=== PATIENT | male | born 1975 | race Caucasian/White ===

== ENCOUNTER 2023-06-07 14:40 | Emergency (ER) | payer SELFPAY ==
[~2023-06-07] VITALS: Ht 165.1 cm; Wt 76.2 kg
[2023-06-07 14:50] VITALS: BP 140/82
[2023-06-07] MEDS ORDERED: LIPITOR40 MG PO (15:05)
[2023-06-07] MEDS ORDERED: ALVESCO6.1 GM INH (15:05)
[2023-06-07] MEDS ORDERED: PROVENTIL HFA6.7 GM INH (15:05)
[2023-06-07] MEDS ORDERED: SERTRALINE HYDR50 MG PO (15:05)
[2023-06-07] MEDS ORDERED: DEPAKOTE500 M2 PO (15:05)
== END 2023-06-07 15:23 | disposition home or self-care (01) ==
LOC: ED 14:40
DX: I63.9 Cerebral infarction, unspecified (principal); Z76.0 Encounter for issue of repeat prescription; F32.A Depression, unspecified; J44.9 Chronic obstructive pulmonary disease, unspecified; E78.5 Hyperlipidemia, unspecified; G43.909 Migraine, unspecified, not intractable, without status migrainosus; Z88.1 Allergy status to other antibiotic agents; Z98.890 Other specified postprocedural states

== ENCOUNTER 2023-08-01 19:43 | Emergency (ER) | payer SELFPAY ==
[~2023-08-01] VITALS: Ht 167.6 cm; Wt 74.4 kg
[~2023-08-01 19:43] MED LIST: ALVESCO6.1 GM INH; DEPAKOTE500 M2 PO; LIPITOR40 MG PO; PROVENTIL HFA6.7 GM INH; SERTRALINE HYDR50 MG PO
[2023-08-01] MEDS ORDERED: ASPIRIN CHILDRE81 MG PO (20:09)
[2023-08-01] MEDS ORDERED: ZOLOFT50 MG PO (20:09)
[2023-08-01] MEDS ORDERED: AMOX-CLAV 875-1 EACH PO (22:15)
[2023-08-01] MEDS ORDERED: Amoxicillin/Clavulanate Pota 875 MG TAB PO ONE (22:15)
== END 2023-08-01 22:22 | disposition home or self-care (01) ==
LOC: ED 19:43
DX: J32.9 Chronic sinusitis, unspecified (principal); H92.03 Otalgia, bilateral; Z88.1 Allergy status to other antibiotic agents; Z79.899 Other long term (current) drug therapy; Z79.82 Long term (current) use of aspirin

== ENCOUNTER 2023-10-03 21:44 | Emergency (ER) | payer SELFPAY ==
[~2023-10-03] VITALS: Ht 167.6 cm; Wt 76.2 kg
[~2023-10-03 21:44] MED LIST changes: +AMOX-CLAV 875-1 EACH PO; +ASPIRIN CHILDRE81 MG PO; +ZOLOFT50 MG PO
[2023-10-03 21:53] VITALS: BP 111/76
[2023-10-03] MEDS ORDERED: ACETAMINOPHEN 325 MG TAB PO ONE (22:10)
[2023-10-03] MEDS ORDERED: SODIUM CHLORIDE 0.9% 1,000 ML IV ONE (22:10)
[2023-10-03 22:30] LABS: BASO # 0.1 10*3/uL (0.0-0.1); BASO % 0.6 % (0.0-1.0); EOS # 0.2 10*3/uL (0.0-0.4); EOS % 1.8 % (1.0-4.0); HEMATOCRIT 45.2 % (42.0-52.0); LYMPH # 2.5 10*3/uL (1.3-4.4); LYMPH % 27.2 % (27.0-41.0); MEAN CELL VOLUME 90.4 fl (80.0-94.0); MEAN CORPUSCULAR HGB CONC 34.3 g/dl (33.0-37.0); MEAN PLATELET VOLUME 9.7 fl (9.6-12.3); MONO # 0.8 10*3/uL (0.1-1.0); MONO % 8.7 % (3.0-9.0); NEUT # 5.7 10*3/uL (2.3-7.9); NEUT % 61.2 % (47.0-73.0); PLATELET COUNT AUTOMATED 252 10*3/uL (130-400); RED CELL DISTRI WIDTH 13.3 % (0-14.5); WHITE BLOOD COUNT 9.3 10*3/uL (4.8-10.8)
[2023-10-03 22:39] LABS: ACT PARTIAL THROMBO TIME 27.9 SECONDS (20.0-32.1)
[2023-10-03 22:51] LABS: ALKALINE PHOSPHATASE 85 U/L (46-116); BUN 11 mg/dl (9-23); CHLORIDE 109 mmol/L (98-107); SGPT/ALT 26 U/L (5-49); TOTAL PROTEIN 6.6 gm/dL (6.0-8.0)
[2023-10-04] MEDS ORDERED: Lidocaine Hydrochloride 15 ML UDC PO STA (00:33)
[2023-10-04] MEDS ORDERED: Dicyclomine Hydrochloride 20 MG/10 ML OSYR PO STA (00:33)
[2023-10-04] MEDS ORDERED: MG-AL HYDROXIDE/SIMETICONE 30 ML UDC PO STA (00:33)
[2023-10-04] MEDS ORDERED: PEPCID AC10 M2 PO (00:35)
[2023-10-04] MEDS ORDERED: Ondansetron Hydrochloride 4 MG/2 ML VIAL IV ONE (00:35)
== END 2023-10-04 00:41 | disposition home or self-care (01) ==
LOC: ED 21:44
PROVIDERS: Internal Medicine
DX: K21.9 Gastro-esophageal reflux disease without esophagitis (principal); R42 Dizziness and giddiness; I25.2 Old myocardial infarction; J45.909 Unspecified asthma, uncomplicated; G43.909 Migraine, unspecified, not intractable, without status migrainosus; Z88.1 Allergy status to other antibiotic agents; Z98.890 Other specified postprocedural states; Z87.891 Personal history of nicotine dependence

== ENCOUNTER 2023-12-27 16:46 | Emergency (ER) | payer MEDICAID ==
[~2023-12-27] VITALS: Ht 167.6 cm; Wt 78.0 kg
[~2023-12-27 16:46] MED LIST changes: +PEPCID AC10 M2 PO
[2023-12-27 17:01] VITALS: BP 121/77
[2023-12-27] MEDS ORDERED: SEROQUEL50 MG PO (17:07)
[2023-12-27] MEDS ORDERED: MAGNESIUM100 M1 PO (17:08)
[2023-12-27 17:49] LABS: BASO # 0.1 10*3/uL (0.0-0.1); BASO % 0.9 % (0.0-1.0); EOS # 0.3 10*3/uL (0.0-0.4); EOS % 4.4 % (1.0-4.0); HEMATOCRIT 48.2 % (42.0-52.0); LYMPH # 3.2 10*3/uL (1.3-4.4); LYMPH % 41.2 % (27.0-41.0); MEAN CELL VOLUME 95.4 fl (80.0-94.0); MEAN CORPUSCULAR HGB 30.9 pg (27.0-31.0); MEAN CORPUSCULAR HGB CONC 32.4 g/dl (33.0-37.0); MEAN PLATELET VOLUME 9.8 fl (9.6-12.3); MONO # 0.6 10*3/uL (0.1-1.0); MONO % 7.6 % (3.0-9.0); NEUT # 3.6 10*3/uL (2.3-7.9); NEUT % 45.5 % (47.0-73.0); PLATELET COUNT AUTOMATED 247 10*3/uL (130-400); RED BLOOD COUNT 5.05 10*6/uL (4.50-5.90); RED CELL DISTRI WIDTH 13.1 % (0-14.5); WHITE BLOOD COUNT 7.8 10*3/uL (4.8-10.8)
[2023-12-27 18:00] LABS: BILIRUBIN Negative (Negative); BLOOD Negative (Negative); CLARITY Clear (Clear); COLOR Yellow (Yellow); GLUCOSE Negative (Negative); KETONE Negative (Negative); LEUKO ESTERASE Negative (Negative); NITRITE Negative (Negative); PH 7.5 (4.5-8.0)
[2023-12-27 18:03] LABS: URINE AMPHETAMINES Negative (1000ng/ml); URINE BARBITURATES Negative (200ng/ml); URINE BENZODIAZEPINES Negative (200ng/ml); URINE CANNABINOIDS (THC) Negative (50ng/ml); URINE COCAINE Positive (300ng/ml); URINE METHADONE Negative (300ng/ml); URINE OPIATES Negative (300ng/ml); URINE PHENCYCLIDINE Negative (25ng/ml)
[2023-12-27 18:18] LABS: BUN 11 mg/dl (9-23); CHLORIDE 103 mmol/L (98-107); CPK 86 U/L (34-171)
[2023-12-27 18:21] LABS: ETHYL ALCOHOL < 3.0 mg/dl (<3)
== END 2023-12-27 18:32 | disposition home or self-care (01) ==
LOC: ED 16:46
PROVIDERS: Physician Assistant Medical
DX: R45.851 Suicidal ideations (principal); F19.10 Other psychoactive substance abuse, uncomplicated; F32.A Depression, unspecified; F41.9 Anxiety disorder, unspecified; F90.9 Attention-deficit hyperactivity disorder, unspecified type; J45.909 Unspecified asthma, uncomplicated; G43.909 Migraine, unspecified, not intractable, without status migrainosus; Z88.1 Allergy status to other antibiotic agents; Z98.890 Other specified postprocedural states; Z79.899 Other long term (current) drug therapy

== ENCOUNTER 2024-04-25 16:53 | Emergency (ER) | payer MEDICAID ==
[~2024-04-25] VITALS: Ht 167.6 cm; Wt 79.4 kg
[~2024-04-25 16:53] MED LIST changes: +MAGNESIUM100 M1 PO; +SEROQUEL50 MG PO
[2024-04-25 16:57] VITALS: BP 99/54
[2024-04-25] MEDS ORDERED: DIVALPROEX SOD500 M1 PO (17:00)
[2024-04-25] MEDS ORDERED: DIVALPROEX SOD250 M1 PO (17:00)
[2024-04-25] MEDS ORDERED: QUETIAPINE FUM100 M3 PO (17:01)
[2024-04-25 17:16] LABS: BASO % 0.7 % (0.0-1.0); EOS # 0.1 10*3/uL (0.0-0.4); EOS % 1.8 % (1.0-4.0); HEMATOCRIT 47.7 % (42.0-52.0); MEAN CELL VOLUME 94.8 fl (80.0-94.0); MEAN CORPUSCULAR HGB 30.6 pg (27.0-31.0); MEAN CORPUSCULAR HGB CONC 32.3 g/dl (33.0-37.0); MEAN PLATELET VOLUME 9.9 fl (9.6-12.3); MONO # 0.9 10*3/uL (0.1-1.0); MONO % 15.9 % (3.0-9.0); PLATELET COUNT AUTOMATED 194 10*3/uL (130-400); RED BLOOD COUNT 5.03 10*6/uL (4.50-5.90); RED CELL DISTRI WIDTH 13.2 % (0-14.5); WHITE BLOOD COUNT 5.6 10*3/uL (4.8-10.8)
[2024-04-25 17:35] LABS: BUN 10 mg/dl (9-23); CHLORIDE 104 mmol/L (98-107)
[2024-04-25] MEDS ORDERED: LEVOFLOXACIN500 MG PO (18:05)
[2024-04-25] MEDS ORDERED: LEVOFLOXACIN 500 MG TAB PO ONE (18:05)
== END 2024-04-25 18:53 | disposition home or self-care (01) ==
LOC: ED 16:53
PROVIDERS: Nurse Practitioner Family
DX: J18.9 Pneumonia, unspecified organism (principal); Z20.822 Contact with and (suspected) exposure to COVID-19; R53.1 Weakness; J45.909 Unspecified asthma, uncomplicated; G43.909 Migraine, unspecified, not intractable, without status migrainosus; F41.9 Anxiety disorder, unspecified; I25.2 Old myocardial infarction; Z86.73 Personal history of transient ischemic attack (TIA), and cerebral infarction without residual deficits; Z88.1 Allergy status to other antibiotic agents; Z98.890 Other specified postprocedural states; Z87.891 Personal history of nicotine dependence

== ENCOUNTER 2024-07-22 19:11 | Emergency (ER) | payer OTHER ==
[~2024-07-22] VITALS: Ht 167.6 cm; Wt 81.6 kg
[~2024-07-22 19:11] MED LIST changes: +DIVALPROEX SOD250 M1 PO; +DIVALPROEX SOD500 M1 PO; +LEVOFLOXACIN500 MG PO; +QUETIAPINE FUM100 M3 PO
[2024-07-22 19:27] VITALS: BP 115/77
[2024-07-22] MEDS ORDERED: METHOCARBAMOL 500 MG TAB PO ONE (20:55)
[2024-07-22] MEDS ORDERED: METHOCARBAMOL500 M1 PO (20:56)
== END 2024-07-22 21:28 | disposition home or self-care (01) ==
LOC: ED 19:11
DX: M54.50 Low back pain, unspecified (principal); J45.909 Unspecified asthma, uncomplicated; G43.909 Migraine, unspecified, not intractable, without status migrainosus; F31.9 Bipolar disorder, unspecified; F41.9 Anxiety disorder, unspecified; Z79.82 Long term (current) use of aspirin; Z79.899 Other long term (current) drug therapy; Z88.1 Allergy status to other antibiotic agents

== ENCOUNTER 2024-09-07 04:15 | Emergency (ER) | payer OTHER ==
[~2024-09-07] VITALS: Ht 167.6 cm; Wt 79.8 kg
[~2024-09-07 04:15] MED LIST changes: +METHOCARBAMOL500 M1 PO
[2024-09-07 04:21] VITALS: BP 124/78
[2024-09-07] MEDS ORDERED: Ketorolac Tromethamine 30 MG/ML VIAL IV ONE (04:30)
== END 2024-09-07 04:38 ==
LOC: ED 04:15
DX: S29.011A Strain of muscle and tendon of front wall of thorax, initial encounter (principal); F17.290 Nicotine dependence, other tobacco product, uncomplicated; Z88.1 Allergy status to other antibiotic agents; Z79.899 Other long term (current) drug therapy; Z79.82 Long term (current) use of aspirin; Z98.890 Other specified postprocedural states; W51.XXXA Accidental striking against or bumped into by another person, initial encounter; Y93.89 Activity, other specified; Y92.89 Other specified places as the place of occurrence of the external cause; Y99.8 Other external cause status